=== PATIENT | female | born 1965 | race Caucasian/White ===

== ENCOUNTER 2016-11-05 09:20 | Emergency (ER) | payer OTHER ==
[2016-11-05] MEDS ORDERED: IOPAMIDOL 300 (61%) 100 ML VIAL IV ONE (09:21)
[2016-11-05 10:16] LABS: ABSOLUTE NEUTROPHIL COUNT 4.9 K/mm3 (1.8-7.7); BASO # 0.1 K/mm3 (0.0-0.2); BASO % 0.8 % (0.2-1.0); EOS # 0.1 (0.0-0.5); HEMATOCRIT 42.9 % (37.0-47.0); HEMOGLOBIN 13.9 gm/l (12.0-16.0); IMM NEUT% 0.3 % (0-1); LYMPH # 2.5 (1.0-4.8); LYMPH % 30.6 % (15-45); MEAN CELL VOLUME 94.9 fl (81.0-99.0); MEAN CORPUSCULAR HEMOGLOBIN 30.8 pg (27.0-31.0); MEAN CORPUSCULAR HGB CONC 32.4 g/dl (33.0-37.0); MEAN PLATELET VOLUME 9.3 fl (7.4-10.4); MONO # 0.5 (0.0-0.8); MONO % 6.8 % (4-12); NEUT % 60.5 % (43-75); PLATELET COUNT 312 K/mm3 (130-400); RED CELL DISTRIBUTION WIDTH 13.9 % (11.5-14.5)
[2016-11-05 10:42] LABS: ALB/GLOB RATIO 1.6 (>1.0); ALBUMIN 4.1 gm/dL (3.5-5.7); CALCIUM 9.4 mg/dL (8.6-10.3); MAGNESIUM 2.2 mg/dL (1.9-2.7)
[2016-11-05 10:55] LABS: SPECIFIC GRAVITY 1.025 (1.001-1.030); URINE BILIRUBIN NEGATIVE (NEGATIVE); URINE BLOOD TRACE (NEGATIVE); URINE GLUCOSE (UA) NEGATIVE (NEGATIVE); URINE LEUKOCYTE ESTERASE TRACE (NEGATIVE); URINE NITRITE POSITIVE (NEGATIVE); URINE PROTEIN NEGATIVE (NEGATIVE); URINE UROBILINOGEN NORMAL (0-1 mg/dl)
[2016-11-05 10:56] LABS: URINE APPEARANCE HAZY; URINE COLOR YELLOW
[2016-11-05 11:14] LABS: URINE BACTERIA 4+; URINE CRYSTALS MOD CALCIUM OXALATE /hpf; URINE WBC RARE /hpf
--- NOTE | 2016-11-05 11:56 | CT ---
CT ABDOMEN AND PELVIS WITH CONTRAST HISTORY: Abdominal pain and distention. TECHNIQUE: Following intravenous administration of 100cc of Isovue-300, contiguous axial images were acquired from the lung bases to the ischial tuberosities. Oral contrast was not administered. COMPARISON:None. FINDINGS: LUNG BASES: Minor bibasilar atelectatic change. LIVER: No focal lesion. SPLEEN: No focal lesion. PANCREAS: No focal lesion. ADRENAL GLANDS: No mass effect. KIDNEYS: No focal lesion. No collecting system dilatation. GALLBLADDER: Surgically absent. BOWEL: Moderate fecal loading. Fecaloid material within the distal ileum. Limited assessment of the distal colon due to decompression. No abnormal small bowel dilatation. APPENDIX: Normal gas-filled appendix. PELVIC ORGANS: Small right adnexal cyst, 1.9 cm in size. Heterogeneity of the uterus, consider eventual sonography. FREE FLUID: No gross free fluid identified. ABDOMINOPELVIC LYMPH NODES: No abnormally enlarged lymph nodes identified. ABDOMINAL AORTA: Mild to moderate atherosclerotic calcifications without aneurysmal dilatation. OSSEOUS STRUCTURES: Findings of lumbar disc degeneration with diffuse disc bulge at L4-5., Mild to moderate canal stenosis at this level. No obviously destructive lesions. IMPRESSION: 1. Noninflammatory, nonobstructive bowel gas pattern. Normal appendix. Moderate fecal load, correlate for possible constipation. 2. Nondominant right adnexal cyst 1.9 cm in size, consider eventual pelvic sonography to further evaluate this as well as. Low-attenuation foci of the uterus. 3. No free fluid. 4. Evidence of aortic atherosclerotic disease and lumbar disc degeneration. 5. Postcholecystectomy change. Results were electronically transmitted to the electronic medical record at 11/05/2016 at 1153 hours.
== END 2016-11-05 12:59 | disposition home or self-care (01) ==
LOC: ED 09:20
DX: K59.00 Constipation, unspecified (principal); R11.0 Nausea; N39.0 Urinary tract infection, site not specified; B96.20 Unspecified Escherichia coli [E. coli] as the cause of diseases classified elsewhere; F17.210 Nicotine dependence, cigarettes, uncomplicated; Z85.038 Personal history of other malignant neoplasm of large intestine
CPT/HCPCS: 83690; 85025; 87086; 80053; 83735; 81001; 74177; 99283 ×2; Q9967